=== PATIENT | male | born 1965 | race Caucasian/White ===

== ENCOUNTER 2018-04-29 10:22 | Outpatient (REF) | payer BC, SELFPAY ==
[2018-04-29 21:01] LABS: Anion Gap 6.2 mmol/L (3-11); BUN 26 mg/dL (7-18); CO2 32.8 mmol/L (21.0-32.0); CREATININE 1.12 mg/dL (0.70-1.30); Calcium 8.7 mg/dL (8.5-10.1); Chloride 100 mmol/L (98-107); Glucose 78 mg/dL (70-100); Potassium 4.1 mmol/L (3.5-5.1); Sodium 139 mmol/L (136-145)
== END 2018-04-29 10:42 ==
LOC: NCHCN 10:22
PROVIDERS: PCP Family Medicine; Visit Provider Family Medicine
DX: I10 Essential (primary) hypertension (principal)
CPT/HCPCS: 80048

== ENCOUNTER 2021-06-03 12:30 | Outpatient (REF) | payer OTHER, SELFPAY ==
[2021-06-03 21:42] LABS: Calculated LDL 56 mg/dL (<100); Cholesterol 110 mg/dL (<200); HDL Cholesterol 36 mg/dL (40-60); Triglyceride 90 mg/dL (<150)
== END 2021-06-03 12:31 | disposition home or self-care (01) ==
LOC: NCHCN 12:30
PROVIDERS: PCP Family Medicine; Visit Provider Family Medicine
DX: I25.10 Atherosclerotic heart disease of native coronary artery without angina pectoris (principal)
CPT/HCPCS: 80061

== ENCOUNTER 2022-09-08 19:16 | Outpatient (REF) | payer OTHER, SELFPAY ==
[2022-09-08 15:27] LABS: Anion Gap 2.8 mmol/L (3-11); BUN 16 mg/dL (7-18); CO2 33.2 mmol/L (21.0-32.0); CREATININE 0.9 mg/dL (0.70-1.30); Chloride 102 mmol/L (98-107); Estimated GFR 98.38 (mL/min/1.73m2); Glucose 97 mg/dL (74-106); Potassium 4.6 mmol/L (3.5-5.1); Sodium 138 mmol/L (136-145)
== END 2022-09-08 19:17 | disposition home or self-care (01) ==
LOC: NCHCN 19:16
PROVIDERS: PCP Family Medicine; Visit Provider Family Medicine
DX: I10 Essential (primary) hypertension (principal)
CPT/HCPCS: 80048

== ENCOUNTER 2022-10-12 15:53 | Outpatient (REF) | payer OTHER, SELFPAY ==
[2022-10-12 21:10] LABS: Anion Gap 6.1 mmol/L (3-11); BUN 22 mg/dL (7-18); CO2 30.9 mmol/L (21.0-32.0); Calcium 9.1 mg/dL (8.5-10.1); Chloride 104 mmol/L (98-107); Glucose 115 mg/dL (74-106); Potassium 5.1 mmol/L (3.5-5.1); Sodium 141 mmol/L (136-145)
[2022-10-13 18:27] LABS: PSA, Screening 0.3 ng/mL (<=3.5)
== END 2022-10-12 15:54 | disposition home or self-care (01) ==
LOC: NCHCN 15:53
PROVIDERS: PCP Family Medicine; Visit Provider Family Medicine
DX: I10 Essential (primary) hypertension (principal); Z12.5 Encounter for screening for malignant neoplasm of prostate
CPT/HCPCS: 80048; 84153

== ENCOUNTER 2023-10-07 15:01 | Outpatient (REF) | payer OTHER, SELFPAY ==
[2023-10-07 14:48] LABS: Abs Immature Grans 0.01 10^3/uL (0.0-0.06); Absolute Basophil Count 0.05 10^3/uL (0.0-0.2); Absolute Lymphocyte Count 0.65 10^3/uL (1.2-3.4); Absolute Monocyte Count 0.48 10^3/uL (0.1-0.8); Absolute Neutrophil Count 3.36 10^3/uL (1.2-6.7); Eosinophils % 6.2; HCT 41.9 % (40.0-50.0); Immature Grans % 0.2; Lymphocytes % 13.4; MCH 27.2 pg (27.0-33.0); MCV 88 fL (80-95); MPV 12.3 fL (8.0-11.0); Monocytes % 9.9; Neutrophils % 69.3; Platelet Count 141 10^3/uL (130-400); RBC 4.78 10^6/uL (4.36-5.78); RDW 12.6 % (11.8-14.1); RDW-SD 40.3 fL; WBC 4.85 10^3/uL (4.4-10.8)
[2023-10-07 15:11] LABS: ALT 26 U/L (16-63); AST 17 U/L (15-37); Albumin 3.8 g/dL (3.4-5.0); Alkaline Phosphatase 90 U/L (46-116); Anion Gap 7.3 mmol/L (3-11); BUN 24 mg/dL (7-18); Bilirubin, Total 0.4 mg/dL (0.2-1.0); CO2 28.7 mmol/L (21.0-32.0); CREATININE 1.1 mg/dL (0.70-1.30); Calcium 9.2 mg/dL (8.5-10.1); Calculated LDL 39 mg/dL (<100); Chloride 103 mmol/L (98-107); Cholesterol 108 mg/dL (<200); Estimated GFR 76.85 (mL/min/1.73m2); Glucose 152 mg/dL (74-106); HDL Cholesterol 45 mg/dL (40-60); Potassium 5.3 mmol/L (3.5-5.1); Sodium 139 mmol/L (136-145); Total Protein 7.5 g/dL (6.4-8.2); Triglyceride 123 mg/dL (<150)
[2023-10-07 15:51] LABS: Hemoglobin A1C 6.3 % (<5.7)
== END 2023-10-07 15:02 | disposition home or self-care (01) ==
LOC: NCHCN 15:01
PROVIDERS: PCP Family Medicine; Visit Provider Family Medicine
DX: D61.818 Other pancytopenia (principal); E11.9 Type 2 diabetes mellitus without complications; I25.10 Atherosclerotic heart disease of native coronary artery without angina pectoris
CPT/HCPCS: 80053; 80061; 82043; 82570; 83036; 85025

== ENCOUNTER 2023-10-28 13:15 | Outpatient (REF) | payer OTHER, SELFPAY ==
[2023-10-28 15:31] LABS: Anion Gap 6.7 mmol/L (3-11); BUN 23 mg/dL (7-18); CO2 29.3 mmol/L (21.0-32.0); CREATININE 1.1 mg/dL (0.70-1.30); Calcium 8.8 mg/dL (8.5-10.1); Chloride 103 mmol/L (98-107); Estimated GFR 76.85 (mL/min/1.73m2); Glucose 123 mg/dL (74-106); Sodium 139 mmol/L (136-145)
[2023-10-28 16:55] LABS: COMMENT (LAB VIEW ONLY) 51.36 mg/dL; PROTEIN 15.4 mg/dL; Prot/Crea Ur Ratio 0.29
[2023-10-28 18:46] LABS: COMMENT (LAB VIEW ONLY) 52.28 mg/dL; Microalb ug/mg Crea 93.7 ug/mg Cr
== END 2023-10-28 13:16 | disposition home or self-care (01) ==
LOC: NCHCN 13:15
PROVIDERS: PCP Family Medicine; Referring Provider Family Medicine; Visit Provider Family Medicine
DX: E87.5 Hyperkalemia (principal); E11.9 Type 2 diabetes mellitus without complications
CPT/HCPCS: 80048; 82043; 82565; 82570; 84156

== ENCOUNTER 2024-07-31 08:53 | Day surgery (SDC) | payer OTHER, SELFPAY ==
--- NOTE | 2024-07-30 12:35 | W.PM.DSUDISC ---
Date of service: 07/31/24 Discharge Plan Disposition Patient Disposition: Home Condition: Good Discharge Details Reason For Visit: screening colonoscopy Attending Provider: Sachin Stanton Primary Care Provider: Delfina Ceron Home Meds and New Rx's Prescriptions: Continued Jardiance 25 mg tablet 25 mg PO DAILY mecobalamin (vitamin B12) 500 mcg tablet,chewable 500 mcg PO DAILY aspirin 81 mg capsule 81 mg PO DAILY atorvastatin 40 mg tablet 40 mg PO QHS lisinopril 20 mg tablet 20 mg PO DAILY tamsulosin 0.4 mg capsule 0.4 mg PO DAILY metoprolol tartrate 50 mg tablet 50 mg PO DAILY omeprazole 20 mg capsule,delayed release(DR/EC) 20 mg PO DAILY spironolactone 50 mg tablet 50 mg PO DAILY amlodipine 5 mg tablet 10 mg PO DAILY Discontinued bisacodyl [Dulcolax (bisacodyl)] 5 mg tablet,delayed release (DR/EC) 5 mg PO ONCE Qty: 4 0RF Rx Instructions: Take per colonoscopy instructions provided by ordering providers office polyethylene glycol 3350 17 gram/dose powder 17 g PO ONCE Qty: 238 0RF Rx Instructions: Take per colonoscopy instructions provided by ordering providers office Discharge Instructions Instructions: Colon polyps, Diverticulosis Additional Instructions: Franco, was very nice meeting you today, I hope you are comfortable throughout the colonoscopy. Everything went very smoothly. I did find, and removed, 2 polyps today. These will both be sent off for testing, since polyps, different varieties, we use that information to help determine the timing of your next colonoscopy. Incidentally, you also have some diverticulosis. These are little weak spots in the wall of the colon that cause little pockets or pouches to form. I have attached a little bit of information here about diverticulosis as well as colorectal polyps. If you need anything at all, please do not hesitate to ask, otherwise, we will be in touch once the polyp report is available. 1. If tolerated, consume a soft, low fiber diet for 1-2 days. 2[address] Do not drive, drink alcohol, operate machinery, make critical decisions, or do activities that require coordination or balance for 24 hours. 3. Because air was put into your colon during the procedure, expelling air from your rectum (passing gas or farting) is normal. 4. You may not have a bowel movement for 1-3 days because of the colonoscopy prep. This is normal. 5. Go directly to the emergency room if you notice any of the following: Develop chills (warm to touch), or if you have a thermometer and your temperature is above 101 Difficulty breathing or difficultly swallowing Persistent vomiting Severe abdominal pain, other than gas cramps Severe chest pain Black, tarry stools Any bleeding ? exceeding one tablespoon 6. Call your physician if the site where your intravenous was started becomes red, swollen, painful, and warm to touch. 7. Your physician has reviewed your pre-procedure medications. Please continue to take those medications as previously ordered. You will be given specific information/education regarding any changes to your medications before leaving. Activity:: Activity as Tolerated Diet:: As Tolerated Discharge Orders Discharge Orders: Discharge Order (Routine); Ordered 07/30/24 Ordered By: Sachin Stanton DS: Diagnosis Discharge Diagnosis (1) Encounter for screening colonoscopy: Status: Acute Asessment and Plan: Follow-up on polypectomy results
--- NOTE | 2024-07-30 12:37 | COLE_ITS ---
Date of service: 07/31/24 Time of Service: 10:44 Colonoscopy Report Date of procedure: 07/31/24 Pre-op diagnosis general: screening colonoscopy Post-op diagnosis procedure note: other (Diverticulosis, colon polyps) Procedure: colonoscopy with polypectomy Surgeon: Sachin Stanton Anesthesia Type: General:No Airway Estimated blood loss (mL): 5 Pathology: other (0.25 cm flat polyp at 70 cm, 0.25 cm flat polyp at 30 cm) Complications: None Disposition: same day Indications: Franco is a 59 year old man who needs his next screening colonsocopy Prep: Miralax/Dulcolax Procedure Start Time: 10:23 Procedure End Time: 10:38 Retraction Time: 9 Findings: 0.25 cm flat polyp at 70 cm, 0.25 cm flat polyp at 30 cm Procedure Description: After the induction of anesthesia, and with the patient in left lateral decubitus position, I began by performing an external anorectal exam.? Perineum and skin were normal, as was the anal verge.? There was no evidence of external hemorrhoids.? Next, I performed a digital rectal exam.? I did not appreciate any abnormal findings.? Next, I advanced a colonoscope into the rectal vault.? I performed retroflexion.? This appeared normal.? Using insufflation, I then advanced the colonoscope beyond the rectal folds and into the sigmoid colon before advancing towards the cecum.? There is sigmoid diverticulosis.? The scope was noted to be in the cecum by identification of the ileocecal valve and appendiceal orifice.? I then began withdrawing the colonoscope using repeated irrigation as necessary for full evaluation of the colonic mucosa. Around 70 cm from the anal verge I identified a 0.25 cm polyp. ?It appeared flat in character. ?I was able to remove this with a cold forcep polypectomy. ?I examined the site, and there was minimal bleeding. ?Once this was completed, I continued to withdraw the scope and examine the remainder of the colonic mucosa. I found another polyp around 30 cm from the anus. This was also flat, and also about 0.25 cm. This was removed with cold forceps as well with minimal bleeding once the scope was withdrawn to the level of the rectum, great care was taken to examine portions of the rectal folds.? Finally, the scope was withdrawn and the patient was brought to the same-day surgery recovery unit as the anesthetic wore off. ?The findings and instructions were shared with the patient prior to discharge. [place] Bowel Prep [place] Bowel Prep Right Colon: 3 Left Colon: 3 Transverse Colon: 3 Total Score: 9
--- NOTE | 2024-07-30 18:22 | W.ANESPRE ---
General Info Date of Service Date Performed: 07/31/24 Height: 5 ft 11 in Weight: 156.943 kg Body Mass Index (BMI): 48.2 Surgical Procedure: Operation Date: 07/31/24 10:35 Proposed Procedure Side Surgeon p Colonoscopy Sachin Stanton MD Meds Allergies and Home Medications Allergies Allergy/AdvReac Type Severity Reaction Status Date / Time No Known Allergies Allergy Verified 07/31/24 09:20 Home Medication ?Medication ?Instructions ?Recorded aspirin 81 mg capsule 81 mg PO DAILY 04/05/24 atorvastatin 40 mg tablet 40 mg PO QHS 04/05/24 lisinopril 20 mg tablet 20 mg PO DAILY 04/05/24 metoprolol tartrate 50 mg tablet 50 mg PO DAILY 04/05/24 omeprazole 20 mg capsule,delayed 20 mg PO DAILY 04/05/24 release spironolactone 50 mg tablet 50 mg PO DAILY 04/05/24 tamsulosin 0.4 mg capsule 0.4 mg PO DAILY 04/05/24 amlodipine 5 mg tablet 10 mg PO DAILY 07/20/24 empagliflozin 25 mg tablet 25 mg PO DAILY 07/20/24 (Jardiance) mecobalamin (vitamin B12) 500 mcg 500 mcg PO DAILY 07/20/24 chewable tablet Current Visit Medications: Current Medications Generic Name Dose Route Start Last Admin Trade Name Freq PRN Reason Stop Dose Admin IV Miscellaneous Supplies 1 each 07/31/24 06:00 Iv Access IV 07/31/24 23:59 DIRECTED RE Ondansetron HCl 4 mg 07/30/24 12:38 Ondansetron 4 Mg/2 Ml Vial IVP 08/29/24 12:37 Q4H PRN PRN Nausea / Vomiting Sodium Chloride 0 ml 07/31/24 06:00 Normal Saline Flush 10 Ml Syr IV 07/31/24 23:59 PRN PRN Sodium Chloride 0 ml 07/31/24 06:00 Normal Saline 10 Ml Vial IJ 07/31/24 23:59 DIRECTED PRN Sterile Water 0 ml 07/31/24 06:00 Water,Injection,Sterile 10 Ml Vial IJ 07/31/24 23:59 DIRECTED PRN PFSH Active Problems Active Problems: Problem Status Onset Code Encounter for screening colonoscopy Acute Z12.11 Sleep related hypoxia Acute G47.34 Psoriasis Chronic L40.9 Fatigue Acute R53.83 Nonulcer dyspepsia Acute K30 Nonalcoholic steatohepatitis Acute K75.81 Rosacea Acute L71.9 Hyperlipidemia Acute E78.5 GRACE (obstructive sleep apnea) Chronic G47.33 Medical History Medical History Former smoker, stopped smoking in distant past Pulmonary emphysema [place] of lung (~10/25/23) Hx of adenomatous colonic polyps (~12/13/19) Heart failure with normal ejection fraction COPD (chronic obstructive pulmonary disease) Abscess of lung with pneumonia Pancytopenia Type 2 diabetes mellitus Congestive heart failure Social problem not due to mental disorder per referral 'alcohol abuse, remission since 03/2020 Osteoarthritis, knee Postprocedural cardiogenic shock (~11/08/19) Hemorrhoids Atherosclerosis of coronary artery without angina pectoris Dyspnea Chest pain History of psychiatric disorder Brachial plexus disorders Anemia (~07/04/19) Closed fracture of medial malleolus (~03/05/19) Low back pain Actinic keratosis Carpal tunnel syndrome of left wrist Idiopathic osteoarthritis Osteoarthritis Chronic gastritis Surgical History Surgical History Aortocoronary bypass status History of partial gastrectomy (~04/27/14) Tobacco Smoking/Tobacco Use Status: Former Tobacco Use Alcohol Alcohol Intake: former Substance Use Substance use: Daily Substance use type: marijuana Vital Signs and Lab Results Vital Signs Most Recent Vital Signs in EMR: Temp Pulse Resp BP Pulse Ox 36.5 C 51 L 20 119/66 94 07/31/24 09:25 07/31/24 09:25 07/31/24 09:25 07/31/24 09:25 07/31/24 09:25 Lab Results Blood Type / Crossmatch: No Data to Display Complete Blood Count: No Data to Display Complete Metabolic Panel: No Data to Display Liver Function Panel: No Data to Display Coagulation Panel: No Data to Display Cardiac Panel: No Data to Display Arterial Blood Gas: No Data to Display Venous Blood Gas: No Data to Display Pancreas Panel: No Data to Display Thyroid Panel: No Data to Display Infectious Disease: No Data to Display Blood Cultures: No Data to Display Toxicology Panel: No Data to Display Anesthesia Assessment and Plan Anesthesia History Personal History: No History of Anesthesia Complications Family History: No Family History of Anesthesia Complications Exercise Tolerance Exercise Tolerance: Metabolic Equivalents>4 Cardiac & Pulmonary Exam Cardiac Exam: Normal S1/S2 Heart Sounds Pulmonary Exam: Clear Bilateral Breath Sounds Implantable Cardiac Device Does patient have a Pacemaker or an ICD?: No Airway Exam Known Difficult Airway: No Mallampati Class: 3 Mouth Opening: Normal (> 3cm) Thyromental Distance: Greater than 3 cm Neck Range of Motion: Full ROM Neck Circumference: Normal Teeth Condition: Normal Dentition ASA Classification ASA Score: ASA 3 Emergency Case?: No NPO Status NPO Status: NPO Clears >2 hours, Solids >8 hours Anesthesia Plan Resuscitation Status: Full Code Anesthesia Technique: General Anesthesia Airway Planned: Natural Airway Monitors Used: Standard Monitors Preoperative Comments:: 59 yo male for colo. Sig PMHx: CAD (s/p CABG 2020), HFpEF, GRACE (bipap), COPD, s/p gastric bypass, GERD (well controlled), BMI > 40, DM2 (last A1c 6.3), former smoker . ECHO: LVEF 45-50%, trace MR,
[2024-07-31 09:25] VITALS: BP 119/66; PULSE 51; RESP 20; TEMP 36.5; O2SAT 94
[2024-07-31] MEDS: Normal Saline Flush 10 ML SYR IV (09:43)
[2024-07-31 09:47] VITALS: BMI 48.2
--- NOTE | 2024-07-31 10:32 | BOWEL_PTH ---
PATIENT: Franco Dale LOC: [facility] U#:[id number] AGE/SX: 59/M ROOM: RE07/31/[address]: Sachin Stanton MD : [id number] BED: DIS: 07/31/2024 SPEC #: [id number] RECD: 07/31/24 12:54 STATUS: LIV REQ #: [id number] FLORI: 07/31/24 10:[address]: Sachin Stanton DEPT: Surgical Specimen RECD BY: Anitra Banegas ENTERED: 07/31/24 12:55 SP TYPE: Bowel OTHR DR: Delfina Ceron Tissues: 1 - BIOPSY BOWEL 2 - BIOPSY BOWEL Procedures: GROSS AND MICRO LEVEL 4 Comments: [id number]
[2024-07-31 10:43] VITALS: BP 109/66; PULSE 56; RESP 16; TEMP 36.6; O2SAT 91
--- NOTE | 2024-07-31 10:46 | W.ANESPOSTOP ---
Postoperative Evaluation Date, Time and Location Date Performed: 07/31/24 Time Performed: 10:46 Patient Location: Day Surgery Unit Vital Signs Most Recent Imported Vital Signs: Most Recent Vital Signs Temp Pulse Resp BP Pulse Ox 36.6 C 56 L 16 109/66 91 L 07/31/24 10:43 07/31/24 10:43 07/31/24 10:43 07/31/24 10:43 07/31/24 10:43 Pain Score Most Recent Pain Score: Most Recent Pain Score Pain Level 0 07/31/24 10:43 Assessment Mental Status: Awake (Alert & Oriented to Patient Baseline) Airway and Respiratory Function: Patent airway with normal (patient baseline) respiratory exam Cardiovascular Function: Hemodynamically Stable Hydration Status: Adequately Hydrated Nausea & Vomiting: No Nausea or Vomiting Pain: Pt. Denies Any Pain Peripheral Nerve Block: Patient did not receive a nerve block
[2024-07-31 11:13] VITALS: BP 109/72; PULSE 50; RESP 16; TEMP 36.6; O2SAT 94
== END 2024-07-31 11:28 | disposition home or self-care (01) ==
LOC: SUR 08:53
PROVIDERS: PCP Family Medicine; Visit Provider Surgery
PROC: 0DJD8ZZ Inspection of Lower Intestinal Tract, Via Natural or Artificial Opening Endoscopic (ICD-10-PCS; CPT 45378; principal; 2024-07-31 10:30)
DX: Z12.11 Encounter for screening for malignant neoplasm of colon (principal); K57.30 Diverticulosis of large intestine without perforation or abscess without bleeding; D12.5 Benign neoplasm of sigmoid colon; D12.4 Benign neoplasm of descending colon
CPT/HCPCS: 45380; 88305; J2704

== ENCOUNTER 2025-06-29 09:30 | Outpatient (REF) | payer OTHER, SELFPAY ==
[2025-06-29 15:27] LABS: Anion Gap 7.7 mmol/L (3-11); BUN 19 mg/dL (9-23); CO2 29.3 mmol/L (20.0-31.0); Calcium 9.2 mg/dL (8.3-10.6); Chloride 102 mmol/L (98-107); Cholesterol 94 mg/dL (<200); Glucose 81 mg/dL (74-106); HDL Cholesterol 35 mg/dL (>40); Potassium 5.2 mmol/L (3.5-5.1); Sodium 139 mmol/L (136-145)
== END 2025-06-29 09:31 | disposition home or self-care (01) ==
LOC: NCHCN 09:30
PROVIDERS: PCP Family Medicine; Visit Provider Family Medicine
DX: E78.5 Hyperlipidemia, unspecified (principal); E11.9 Type 2 diabetes mellitus without complications
CPT/HCPCS: 80048; 80061

== ENCOUNTER 2025-07-04 17:18 | Outpatient (REF) | payer OTHER, SELFPAY ==
[2025-07-04 21:49] LABS: Microalb ug/mg Crea 4.9 ug/mg Cr
== END 2025-07-04 17:19 | disposition home or self-care (01) ==
LOC: NCHCN 17:18
PROVIDERS: PCP Family Medicine; Visit Provider Family Medicine
DX: E11.9 Type 2 diabetes mellitus without complications (principal)
CPT/HCPCS: 82043; 82570